=== PATIENT | male | born 1995 | race Caucasian/White ===

== ENCOUNTER 2021-07-16 21:28 | Emergency (ER) | payer SELFPAY ==
--- NOTE | ~2021-07-16 | XR_ITS ---
EXAMINATION: XR thoracic spine 3V DATE: 07/17/2021 00:16 INDICATION: Back pain. Injury. TECHNIQUE: 3 views of thoracic spine were obtained. COMPARISON: None. FINDINGS: There is 9 degrees dextrocurvature of upper thoracic spine. Vertebral body heights are norm al. There is mildly decreased disc height at multiple levels in upper thoracic spine. IMPRESSION: 1. Mild thoracic spondylosis. Reviewed, dictated and finalized at location A.
[2021-07-16 21:48] VITALS: BP 143/87; PULSE 82; RESP 14; TEMP 36.6; O2SAT 100
--- NOTE | 2021-07-16 23:52 | ED.BACK ---
HPI - Back Pain/Injury General Chief Complaint: Back Pain/Injury Stated Complaint: Back pain Time Seen by Provider: 07/16/21 23:48 Source: RN notes reviewed History of Present Illness HPI Narrative: Patient presents emergency department from home for back pain. 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 Patient's pain is just below the shoulder blades he denies any direct trauma or injury pain is worse with bending over and lifting objects he denies any fevers or chills, chest pain shortness of breath abdominal pain nausea vomiting or any other symptoms. States he took ibuprofen at 3 PM today Related Data Allergies Allergy/AdvReac Type Severity Reaction Status Date / Time No Known Allergies Allergy Verified 07/17/21 00:03 Review of Systems Review of Systems: Gen.: Denies fevers or chills ENT: Denies congestion Respiratory: Denies shortness of breath or cough CV: Denies chest pain or palpitations GI: Denies abdominal pain nausea, emesis Musculoskeletal: See HPI Neuro: Denies numbness, tingling, weakness or focal weakness Skin: Denies rash Except as documented, all other systems reviewed and negative [facility] Past Medical History Medical History (Updated 07/17/21 @ 00:24 by Jignesh Graves DO) Patient denies significant medical history Social History Social History (Updated 07/16/21 @ 23:54 by Jignesh Graves DO) Smoking status: Never smoker Exam Narrative: APPEARANCE: No acute distress, nontoxic, resting in bed EYES: EOMI HEENT: Normocephalic, atraumatic, OMM RESPIRATORY: No respiratory distress Clear to auscultation bilaterally with no rhonchi wheezing or rales. CARDIOVASCULAR: Regular rate and rhythm without murmurs rubs or gallops. ABDOMINAL: Soft, nontender, nondistended, MUSCULOSKELETAl: Moves all extremities. No clubbing, cyanosis or edema. Back: No midline thoracic or lumbar tenderness palpation tender to palpation over bilateral paravertebral muscles T7-10 pain increased with forward flexion NEURO: Awake and alert. Following commands, speech normal, no focal deficits SKIN:: Warm, dry. No rashes lesions or abrasions PSYCHIATRIC: Normal affect/mood, Course Course Emergency Course: Discussed with patient results of workup and diagnosis. Discussed need for follow-up with primary care, proper use of medication, and reasons to return to the emergency department. Patient understands and agrees to current treatment plan Vital Signs Vital signs: Vital Signs Temperature 97.8 F 07/16/21 21:48 Pulse Rate 82 07/16/21 21:48 Respiratory Rate 14 07/16/21 21:48 Blood Pressure 143/87 H 07/16/21 21:48 Pulse Oximetry 100 07/16/21 21:48 Temperature 97.8 F 07/16/21 21:48 Pulse Rate 82 07/16/21 21:48 Respiratory Rate 14 07/16/21 21:48 Blood Pressure 143/87 H 07/16/21 21:48 Pulse Oximetry 100 07/16/21 21:48 MDM - Back Pain/Injury Imaging Data Attestation: I personally reviewed and interpreted this imaging study as follows: My impression: Thoracic spine x-ray reviewed by myself shows no acute process Discharge Plan Discharge Clinical Impression: Acute upper back pain Patient Disposition: Home, Self-Care Condition: Stable Instructions: Antibiotic Form, Thoracic Back Strain (ED) Additional Instructions: Return for increasing pain numbness or tingling in the extremities or any other symptoms of concern Prescriptions: New cyclobenzaprine 10 mg tablet 10 mg PO TID PRN (Reason: muscle spasm) Qty: 10 RF: 0 ibuprofen [IBU] 600 mg tablet 600 mg PO Q6H PRN (Reason: pain) Qty: 20 RF: 0 Follow-up/Referrals: PHYSICIAN,DEVICE SALES CONSULTANT [Primary Care Provider] - Bret Mg MD [Physician] - (Follow-up in 1-2 days for further on-call physician treatment and evaluat
[2021-07-17] MEDS: IBUPROFEN 600 MG TABLET PO (00:04)
[2021-07-17 01:02] VITALS: BP 134/95; PULSE 77; RESP 18; O2SAT 98
== END 2021-07-17 01:03 | disposition home or self-care (01) ==
LOC: ANHED 07-17 00:37
PROVIDERS: Emergency Provider Emergency Medicine
DX: M54.6 Pain in thoracic spine (principal)
CPT/HCPCS: 72072; 99283; A9270